=== PATIENT | female | born 1960 | race Caucasian/White ===

== ENCOUNTER → 2023-09-27 09:25 | Outpatient (REF) | payer OTHER, SELFPAY | LOC: HWRAD 09:25 | PROVIDERS: ATTENDING PHYSICIAN Internal Medicine | DX: M79.672 Pain in left foot (principal) | CPT/HCPCS: 73630 ==

== ENCOUNTER 2025-01-28 06:14 | Emergency (ER) | payer OTHER, SELFPAY ==
[2025-01-28 06:23] VITALS: BP 149/93
--- NOTE | 2025-01-28 06:41 | EDRN ---
radiates up to her neck. Pt unable to move her away from her body. Pt has to assist with her R arm to move L arm
[2025-01-28 06:46] VITALS: BMI 34.4
--- NOTE | 2025-01-28 07:18 | ED.GENMED ---
History of Present Illness
General
Chief Complaint: Musculo-Skeletal Complaint
Source: patient
Exam Limitations: none
Time Seen by Provider: 01/28/25 06:32
Nursing documentation reviewed up to this point in time: agreed with
History of Present Illness
History of Present Illness:
Patient is a 64-year-old female who presents to the ER for evaluation of left shoulder pain. Patient did a lot of gardening 2 days ago and has had increasing pain to the left shoulder since. She has not taken anything for discomfort. She
complains of pain with any range of motion including shoulder abduction. She is right-hand dominant. She denies any weakness in arm, she does complain of some numbness to her left fourth finger. Denies any other injuries.
Review of Systems
Review of Systems
Allergies reviewed?: Yes
All Other Systems: ROS reviewed and negative except as documented in HPI and ROS
Constitutional: Reports no symptoms; Denies fever, fatigue or chills
Respiratory: Reports no symptoms
Cardiac: Reports no symptoms
ABD/GI: Reports no symptoms
Musculoskeletal: Reports other (left shoulder discomfort )
Skin: Reports no symptoms
Neurological: Reports no symptoms
Psychiatric: Reports no symptoms
Phy Exam
General Physical Exam
General Presentation: no apparent distress
General age: appears stated age
General Skin: warm and dry
General Habitus: normal
General Mental: alert
General Hydration: appears well hydrated
Neurological Exam
Neurological Exam: alert and oriented x3
Musculoskeletal Exam
Musculoskeletal Exam: other (LUE with strong pulses; tender throughout left shoulder region, no erythema or swelling , no deformity + discomfort with full left shoulder abduction )
Skin Exam
Skin Exam: normal color and warm/dry
Psychiatric Exam
Psychiatric Exam: normal mood/affect
Course
Orders/Labs/Results
Orders:
Orders
01/28/25 07:18
Acetaminophen [Tylenol] 1,000 mg PO NOW STA
Ketorolac [Toradol] 30 mg IM NOW STA
01/28/25 07:19
Lidocaine [Lidocaine 4% Patch] 1 patch TOPICAL NOW STA
Apply Lidocaine patch(s) to:: left shoulder/region
01/28/25 07:25
Shoulder, Left, Trauma CR [CR Shoulder, Trauma - Left] Urgent
Comment:
Reason For Exam: pain
01/28/25 08:36
Sling Left-Treatment ONCE
Vital Signs
Initial and Last Documented VS:
Initial Vital Signs
Temp Pulse Resp BP Pulse Ox
98.1 F 69 16 149/93 100
01/28/25 06:23 01/28/25 06:23 01/28/25 06:23 01/28/25 06:23 01/28/25 06:23
Last Documented Vital Signs
Temp Pulse Resp BP Pulse Ox
98.1 F 59 16 137/85 100
01/28/25 06:23 01/28/25 08:07 01/28/25 08:07 01/28/25 08:07 01/28/25 06:23
MDM/Problems Addressed
Differential Diagnosis Includes:
not limited to: Muscle sprain strain, tendinitis, bursitis
MDM/Problems Addressed:
Symptoms are consistent muscle sprain strain possible bursitis. Patient complains of left shoulder pain after doing a lot of yard work several days ago. She is not taking any for discomfort. She has no neurological deficits. No acute findings on
x-ray. Will DC with anti-inflammatory, muscle laxer.
*Radiology
Radiology exam reviewed: radiology read reviewed
*Pulse Oximetry
Patient hypoxic: no
*Critical Care Note
Total Time (30-74mins, 75-104mins- exclusive of procedures): Not Applicable
ED Attending Note
-
Portions of this chart may have been created with voice recognition software.� Occasional wrong word or��sound alike� substitutions may have occurred due to the inherent limitations of voice recognition software.
Discharge Plan
Departure
Patient Disposition: Home (Routine Discharge)
Date of Disposition: 01/28/25
Time of Disposition: 08:37
Patient with high blood pressure during this ER visit?: Yes
Condition: Fair
Covid-19: Not Applicable
Discharge Problem:
Left shoulder strain
Instructions: Muscle Strain (DC), How to Use a Shoulder Sling, Shoulder pain - ED discharge instructions
Prescriptions:
New
cyclobenzaprine 10 mg tablet
10 mg PO TID PRN (Reason: pain ) Qty: 10 0RF
lidocaine 5 % adhesive patch,medicated
1 patch topical DAILY Qty: 15 0RF
Rx Instructions:
remove after 12 hrs
Referrals:
Esau Johns MD [Active, Orthopedics]
Maeve Krishnamurthy MD [Family Provider, Internal Medicine]
Stand Alone Forms: Return to Work
Activity Restrictions/Additional Instructions:
As discussed ice the affected area for the next 24 to 48 hours 20 minutes at a time several times a day. Ibuprofen 600 mg every 8 hours with food. You may take Tylenol as well for discomfort. A prescription for muscle relaxer was sent to your
pharmacy take as directed. You may take this medication only as needed. This medication may cause drowsiness no driving or drink alcohol while taking medication.
In addition lidocaine patch was sent to your pharmacy.
You may wear sling for support however several times throughout the day please remove sling and do gentle range of motion exercises to prevent a frozen shoulder.
Follow-up with orthopedics call today to make an appointment as soon as possible. Return if any worsening of symptoms.
Interventions
Interventions:
*Risk Screen - Suicide Last Done: 01/28/25 06:23
*General Assessment Last Done: 01/28/25 06:37
*Neglect/Abuse Screening Last Done: 01/28/25 06:37
*ED- Fall Risk Assessment Last Done: 01/28/25 06:37
*ED COVID-19 Vaccine History Last Done: 01/28/25 06:37
*Nursing Disposition Last Done: 01/28/25 09:00
ED-Musculoskeletal Assessment Last Done: 01/28/25 07:15
Discharge Date and Time
Discharge Date/Time: 01/28/25 09:00
Print Language: YAKUT
[2025-01-28] MEDS: TYLENOL 1000 MG PO (07:27)
[2025-01-28] MEDS: TORADOL 30 MG IM (07:32)
[2025-01-28] MEDS: LIDOCAINE 4% PATCH 1 PATCH TOPICAL (07:32)
[2025-01-28 08:07] VITALS: BP 137/85
== END 2025-01-28 09:00 | disposition home or self-care (01) ==
LOC: EMR 06:14
PROVIDERS: EMERGENCY PHYSICIAN Emergency Medicine; FAMILY PHYSICIAN Internal Medicine
DX: S46.912A Strain of unspecified muscle, fascia and tendon at shoulder and upper arm level, left arm, initial encounter (principal); X58.XXXA Exposure to other specified factors, initial encounter
CPT/HCPCS: 96372; 99284; 73030